=== PATIENT | female | born 1965 | race Two or more races ===

== ENCOUNTER → 2024-04-11 | Outpatient (CLI) | payer SELFPAY ==
[2024-04-16 16:08] LABS: Cotinine Screen Blood <1.0 ng/mL (.); Nicotine Blood <1.0 ng/mL (.)
== END | disposition home or self-care (01) ==
LOC: LABSPEC 11:29
PROVIDERS: Referring Provider Registered Nurse; Visit Provider Registered Nurse
DX: Z00.00 Encounter for general adult medical examination without abnormal findings (principal)
CPT/HCPCS: 80323; G0480